=== PATIENT | male | born 1995 | race Caucasian/White ===

== ENCOUNTER 2019-08-21 10:18 | Emergency (ER) | payer MEDICAID ==
[~2019-08-21] VITALS: Ht 175.3 cm; Wt 75.7 kg
[2019-08-21 10:24] VITALS: Ht 175.3 cm; Wt 75.7 kg
[2019-08-21 10:54] VITALS: BP 115/70
== END 2019-08-21 10:54 | disposition home or self-care (01) ==
LOC: ED 10:18
DX: R11.2 Nausea with vomiting, unspecified (principal); R19.7 Diarrhea, unspecified; R10.816 Epigastric abdominal tenderness
CPT/HCPCS: Q0162

== ENCOUNTER 2019-08-23 13:52 | Emergency (ER) | payer MEDICAID ==
[~2019-08-23] VITALS: Ht 175.3 cm; Wt 75.7 kg
[2019-08-23 13:58] VITALS: BP 116/83; Ht 175.3 cm; Wt 75.7 kg
== END 2019-08-23 14:38 | disposition home or self-care (01) ==
LOC: ED 13:52
DX: K21.9 Gastro-esophageal reflux disease without esophagitis (principal)

== ENCOUNTER 2019-12-12 17:48 | Emergency (ER) | payer MEDICAID ==
[~2019-12-12] VITALS: Ht 175.3 cm; Wt 72.7 kg
[2019-12-12 17:59] VITALS: Ht 175.3 cm; Wt 72.7 kg
[2019-12-12 19:23] VITALS: BP 128/78
== END 2019-12-12 19:17 | disposition home or self-care (01) ==
LOC: ED 17:48
DX: F12.188 Cannabis abuse with other cannabis-induced disorder (principal); R11.2 Nausea with vomiting, unspecified
CPT/HCPCS: Q0162

== ENCOUNTER 2019-12-15 18:11 | Emergency (ER) | payer MEDICAID, SELFPAY ==
[~2019-12-15] VITALS: Ht 175.3 cm; Wt 72.6 kg
[2019-12-15 18:13] VITALS: Ht 175.3 cm; Wt 72.6 kg
[2019-12-15 19:27] VITALS: BP 119/79
== END 2019-12-15 19:27 | disposition home or self-care (01) ==
LOC: ED 18:11
DX: R11.0 Nausea (principal); R63.0 Anorexia; Z20.828 Contact with and (suspected) exposure to other viral communicable diseases
CPT/HCPCS: U0003-CS